=== PATIENT | female | born 1975 | race Caucasian/White ===

== ENCOUNTER 2016-11-02 07:25 | Day surgery (SDC) | payer OTHER ==
--- NOTE | 2016-10-12 11:26 | HP ---
DATE OF ADMISSION: 11/02/2016 Patient is to be admitted to the ambulatory surgical service at [place] on . 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 Recently, however, she developed tenderness and swelling involving the posterior aspect of the right thigh. The swelling has become progressively larger in size in a relatively short period of time. That has caused her some alarm. She presents at this juncture for excision of the right posterior thigh mass. Patient states she has also had scalp cysts in the past, admits she has also had scalp cysts for years. PATIENTS PAST MEDICAL HISTORY: Significant for asthma. She has no known history of hypertension, diabetes, respiratory, renal, or hepatic insufficiency. PAST SURGICAL HISTORY: Significant for section in 2012 and 2014. 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 She has had varicose vein stripping in each leg in 2010. ALLERGIES: None known. REGULAR MEDICATIONS: Vitamin D. SOCIAL HISTORY: Negative for tobacco, negative alcohol. FAMILY HISTORY: Mother with varicose veins and phlebitis. Siblings, 1 with an anxiety/depressive disorder, one with CVA. REVIEW OF SYSTEMS: Otherwise, nil. PHYSICAL EXAMINATION: Skin: The patient has a 5 x 6 cm soft tissue mass of the posterior aspect of the proximal right thigh. The mass appears to be confined to the subcutaneous space , slightly fixed in its deeper plane. There are no obvious satellite lesions. There are a multitude of soft tissue masses at the upper and lower extremities, which the patient states have been present for many years with minimal change. Patient also with scalp cysts. IMPRESSION: New rapidly enlarging tender soft tissue mass of the posterior aspect of the left thigh of undetermined etiology. PLAN: Excision of soft tissue neoplasia, right posterior thigh, under local anesthesia with sedation. Indications, alternatives, possible complications were reviewed. Consent obtained. Patient is to be seen preoperatively by Dr. Demarco. Please refer to his notes for those medical details. KT GRUBER M.D. [id number] cc: Dr. Michael Demarco [facility]
[2016-10-25 13:04] VITALS: BMI 27.4
[2016-11-02] MEDS ORDERED: LIDOCAINE HCL 1%, 10 MG/ML (20ML VIAL) ONE (10:11)
[2016-11-02] MEDS ORDERED: PROPOFOL 20 ML ONE (10:22)
[2016-11-02] MEDS ORDERED: ONDANSETRON 4 MG/2 ML VIAL ONE (10:22)
[2016-11-02] MEDS ORDERED: DEXAMETHASONE SOD PHOSPHATE 4 MG/1 ML VIAL ONE (10:22)
[2016-11-02] MEDS ORDERED: MIDAZOLAM HCL 2 MG/2 ML SINGLE DOSE VIAL ONE ×2 (10:22)
[2016-11-02] MEDS ORDERED: LIDOCAINE HCL/PF 2% SDV 5ML VIAL ONE (10:22)
[2016-11-02] MEDS ORDERED: ONDANSETRON 4 MG/2 ML VIAL IVPUSH PRN (11:14)
[2016-11-02] MEDS ORDERED: oxyCODONE HCL 5 MG TABLET PO PRN ×2 (11:29→11:30)
--- NOTE | 2016-11-02 11:43 | OP ---
DATE OF OPERATION: 11/02/2016 PREOPERATIVE DIAGNOSIS: Soft tissue neoplasia, posterior right thigh. POSTOPERATIVE DIAGNOSIS: Subfascial/intramuscular lipomatous neoplasia, right posterior thigh. PROCEDURE: Excision subfascial/intramuscular lipomatous neoplasia, right posterior thigh/intermediate wound closure (5 cm). OPERATING SURGEON: Leon Pena MD ANESTHESIA: Noe Siegel MD (Local/[facility] [place] HISTORY: This is a 40-year-old woman who presented with an enlarging soft tissue mass on the posterior aspect of her right thigh. She presents for excision. Indications, alternatives, and possible complications reviewed. Consent obtained. PROCEDURE: With the patient in the left lateral decubitus position, the posterior aspect of the right thigh was prepped and draped in the usual sterile fashion using chlorhexidine. After placement of 1% lidocaine with epinephrine, creating a field block, a 5-cm transverse incision was made directly over the mass and deepened into the subcutaneous space. Deep to the [place] subcutaneous tissue, a lipomatous neoplasia was encountered. Using sharp dissection, it was freed from the [place] subcutaneous tissues and followed to a defect in the fascia of the musculature below from which it was stemming. The depths of the mass were teased from the fibers of the musculature below and ultimately delivered. After adequate hemostasis and irrigation, the wound was closed in layers. The fascial defect was closed using interrupted 3-0 chromic sutures. The subcutaneous tissues were approximated using interrupted 3-0 chromic sutures. The subcuticular layer was approximated using interrupted 4-0 Biosyn suture and skin edges were approximated using a continuous 5-0 nylon suture. COUNTS: Needle and sponge count correct. ESTIMATED BLOOD LOSS: Minimal. SPECIMEN: Subfascial/intramuscular lipomatous neoplasia, right posterior thigh. DRAINS: None. The patient tolerated the procedure. The procedure was terminated. Yadiel [id number] MTDD
[2016-11-02 11:53] VITALS: TEMP 98.2
[2016-11-02 12:45] VITALS: BP 107/66; PULSE 66
--- NOTE | 2016-11-07 13:53 | PATH ---
Surgical Pathology Report Patient Name: MARIAM BERNARD [facility]. Rec. #: [id number] /Age/Gender: 1975 (Age: 40) / F Account: [id number] Location: [facility] Taken: 11/02/2016 Received: 11/02/2016 Reported: 11/07/2016 Physicians: Leon Pena M.D. Specimen(s) Received SOFT TISSUE MASS RIGHT POSTERIOR THIGH Clinical History Benign neoplasm right distal thigh Final Diagnosis SOFT TISSUE MASS, RIGHT POSTERIOR THIGH, EXCISION: MATURE ADIPOSE TISSUE, CONSISTENT WITH LIPOMA. Electronically Signed Kathrine Araiza M.D. Gross Description Received in formalin labeled "soft tissue mass right posterior thigh," is a 5.0 x 4.2 x 2.3 cm portion of yellow, lobulated adipose tissue. Sectioning reveals homogeneous yellow, smooth fat. No areas of hemorrhage or necrosis are identified. [employer] sections are submitted in 3 cassettes. /11/02/2016 saudi11/02/2016
== END 2016-11-02 12:51 | disposition home or self-care (01) ==
LOC: FASU 07:25
PROVIDERS: ATTEND Surgery
PROC: 0JBL0ZZ Excision of Right Upper Leg Subcutaneous Tissue and Fascia, Open Approach (ICD-10-PCS; principal; 2016-11-02 10:44)
DX: D21.21 Benign neoplasm of connective and other soft tissue of right lower limb, including hip (principal)
CPT/HCPCS: 84703; 88304-TC

== ENCOUNTER 2023-07-14 10:40 | Day surgery (SDC) | payer OTHER ==
[2023-07-10 16:03] VITALS: BMI 31.2
[2023-07-14 10:58] VITALS: RESP 16
[2023-07-14 12:21] VITALS: TEMP 97.2
[2023-07-14 13:05] VITALS: BP 99/68; PULSE 76
== END 2023-07-14 13:00 | disposition home or self-care (01) ==
LOC: FASU-ENDO 10:40
PROVIDERS: ATTEND Internal Medicine Gastroenterology
PROC: 0DBN8ZX Excision of Sigmoid Colon, Via Natural or Artificial Opening Endoscopic, Diagnostic (ICD-10-PCS; principal; 2023-07-14 11:50)
DX: Z12.11 Encounter for screening for malignant neoplasm of colon (principal); D12.7 Benign neoplasm of rectosigmoid junction; K64.1 Second degree hemorrhoids
CPT/HCPCS: 81025; 88305-TC